=== PATIENT | female | born 2000 | race Two or more races ===

== ENCOUNTER 2020-09-01 00:10 | Emergency (ER) | payer MEDICAID ==
[~2020-09-01] VITALS: Ht 152.4 cm; Wt 91.0 kg
[2020-09-01 00:18] VITALS: BP 116/66
== END 2020-09-01 02:27 | disposition home or self-care (01) ==
LOC: ER 00:10
DX: R07.0 Pain in throat (principal)
CPT/HCPCS: 70360; 81025; 99283